=== PATIENT | male | born 1965 | race Caucasian/White ===

== ENCOUNTER 2019-03-05 12:56 | Inpatient (IN) | payer MEDICAID, SELFPAY ==
[2018-11-12 13:12] VITALS: BMI 38.9
[2019-03-05] VITALS (12 sets, daily range): BP systolic 181–200; BP diastolic 80–106; PULSE 72–94; RESP 16–31; TEMP 36.4–37.2; O2SAT 94–98; BMI 37.3; BMI 37.1; BMI 37.2
--- NOTE | 2019-03-05 13:07 | RAD_ITS ---
STUDY: X-RAY CHEST REASON FOR EXAM: Male, 53 years old. Right-sided facial numbness and right-sided. TECHNIQUE: Single AP portable view of the chest. COMPARISON: None. FINDINGS: EKG electrodes are seen. The lungs are clear and expanded. There is no demonstrated pleural abnormality. There is borderline cardiomegaly. Normal mediastinum and asuncion. Normal visualized pulmonary arteries. Normal visualized aortic arch and descending thoracic aorta. There are degenerative changes of the visualized thoracic spine. Normal visualized ribs, clavicles, and shoulders. There is no demonstrated abnormality of the visualized soft tissue structures of the upper abdomen. RAD/Chest 1 View IMPRESSION: Borderline cardiomegaly. Electronically Signed: Kemal Corey, at 13:42 EDT , Service support ,
--- NOTE | 2019-03-05 13:07 | CT_ITS ---
STUDY: CT BRAIN WITHOUT CONTRAST REASON FOR EXAM: Male, 53 years old. Right-sided weakness and facial numbness. RADIATION DOSAGE (If Supplied By Facility): CTDIvol = ( 44.99 ) mGy, DLP = ( 812.98 ) mGycm TECHNIQUE: Transaxial CT imaging of the brain was performed without administration of intravenous contrast material. Individualized dose optimization techniques were used for this CT. COMPARISON: No relevant priors. FINDINGS: Normal soft tissue structures. Normal calvarium. Normal size ventricles and extra-axial spaces for the patient's age. Normal white matter tracts of the cerebral hemispheres. Normal basal ganglia and thalami. Normal brainstem. Normal cerebellum. There is no intracranial hemorrhage. There are no findings of an acute ischemic infarction. Normal visualized paranasal sinuses. CT/Brain/Head without Contrast IMPRESSION: Normal unenhanced CT scan of the brain. N.B. : The above information has been verbally conveyed by Kemal Corey to Dima Hector on 03/05/2019 13:31:44 (ET). Electronically Signed: Kemal Corey, at 13:32 EDT , Service support ,
--- NOTE | 2019-03-05 13:07 | EKG12_ITS ---
Test Reason : NUMBNESS Blood Pressure : / mmHG Vent. Rate : 088 BPM Atrial Rate : 088 BPM P-R Int : 140 ms QRS Dur : 098 ms QT Int : 380 ms P-R-T Axes : 054 046 024 degrees QTc Int : 459 ms Normal sinus rhythm Normal ECG Confirmed by MICKY MARCOS, FRANCESCO ([id number]), newspaper photo editor SHERI JIMÉNEZ ([id number]) on 03/12/2019 11:05:42 AM Referred By: HARJEET/KYLIE Confirmed By:NICOLAS WEEKS MD
[2019-03-05 13:16] LABS: Bedside Glucose 104 mg/dL (70-110)
[2019-03-05 13:16] LABS: Absolute Lymphocyte Count 1.29 X10^3/uL (0.83-4.51); Absolute Neutrophil Count 5.4 X10^3/uL (2.0-7.7); Basophil# 0.02 X10^3/uL; Basophil% 0.3 % (0-1); Eosinophil# 0.04 X10^3/uL; Eosinophils% 0.5 % (0-5); Hematocrit 44.5 % (40-54); Hemoglobin 15.6 g/dL (13.0-16.5); Lymphocyte # 1.29 X10^3/ul (4.0); Lymphocyte % 17.6 % (19-41); Mean Corp Hgb Conc 35.1 g/dL (32-36); Mean Corpuscular Hgb 31.2 pg (27.0-32.0); Mean Platelet Vol. 9.7 fl (6.2-12.0); Monocyte# 0.56 X10^3/uL; Monocyte% 7.6 % (0-10); NRBC Flagged by Analyzer 0 % (0-5); Neutrophil % 73.7 % (47-70); Platelet Count 195 K/mm3 (150-450); RBC Distribution Width SD 42.1 fl (35.1-43.9); White Blood Count 7.3 K/mm3 (4.4-11.0)
[2019-03-05 13:34] LABS: Anion Gap 8 (5-15); BUN 20 mg/dL (7-18); BUN/Creat Ratio 22.1 RATIO (10-20); Calcium,Total 9.8 mg/dL (8.5-10.1); Chloride 106 mmol/L (98-107); EST Glomerular Filtration Rate 93 mL/min (>60); Est Glom Filt Rate - Afr Amer 112 mL/min (>60); Estimated Creatinine Clearance 84.67 ml/min; Glucose 113 mg/dL (74-106); Potassium 3.9 mmol/L (3.5-5.1); Sodium Level 139 mmol/L (136-145)
[2019-03-05 13:51] LABS: International Normalized Ratio 1.1; Prothrombin Time (Protime)PT. 13.5 SECONDS (11.7-14.9)
[2019-03-05 13:52] LABS: Partial Thromboplast Time 29.6 Seconds (24.1-36.2)
--- NOTE | 2019-03-05 14:27 | ED.RN ---
DR VANN NOTIFIED HYPERTENSION CONTINUES AFTER LABATOLOL. NEW ORDER VERBALIZED- 10MG LABATOLOL IV X1.
--- NOTE | 2019-03-05 15:00 | ED.DCSUM_ITS ---
- ER Visit Summary Date of Service: 03/05/19 Chief Complaint: Stroke History of Present Illness: The patient is a 53 M with a possible stroke. He went to bed normal at midnight last night. He woke up at 730 with decreased sensation on his right side. He believes he is walking abnormally, dragging his right foot. He never had this before. He was normal yesterday. No other symptoms or complaints. He has a history of diabetes and hypertension, but stopped taking medications secondary to a loss of his insurance. He does not smoke. He does not take blood thinners. Physical Examination: Afebrile and vital signs unremarkable except blood pressure 190/85. Patient is alert and oriented. Head and neck atraumatic. Heart regular. Lungs clear. NIH stroke scale is normal except for decreased sensation on the right side. His score was a 1. Test Results: EKG showed sinus rhythm at a rate of 88. CBC, BMP, coags, troponin unremarkable. Chest x-ray showed cardiomegaly. CT brain was normal. Emergency Department Course and Treatment: We did activate a stroke team based on his symptoms. Based on his low NIH and his wake-up component, he was not a candidate for TPA therapy. There was no concern for LVO based on his NIH score. He was treated with labetalol for his high blood pressure. I spoke with radiology and neuro. Patient will be admitted for further care. Treatment Plan: As above Disposition: Admission Impression: 1. Right-sided numbness 2. Hypertension This note was generated with [employer] dictation software. It may contain incorrect words, spelling, and punctuation that were not noted in review of the chart prior to signing ED Disposition - Plan for ED Patient: Referrals: Micah Manzanares MD [Primary Care Provider] -
--- NOTE | 2019-03-05 15:38 | PCM.HP.STD ---
Problem List (1) CVA (cerebral vascular accident) Status: Acute Qualifiers: CVA mechanism: occlusion Laterality of affected vessel: unspecified (2) Hypertension Status: Chronic Qualifiers: Hypertension type: essential hypertension Qualified Code(s): I10 - Essential (primary) hypertension (3) DM type 2 (diabetes mellitus, type 2) Status: Chronic Qualifiers: Diabetes mellitus complication status: without complication (4) Obesity (BMI 35.0-39.9 without comorbidity) Status: Chronic History of Present Illness Date of Admission: 03/05/19 Chief Complaint: Left sided weakness - 1 day The patient is a 53 year old M with past medical history of hypertension,obesity, type II DM, not on medications for more than 3 years on account of running out of insurance who was last known to be normal around midnight. He woke up around 7:30 AM and noticed that he has numbness and tingling to his right side. He felt his right leg was heavy and was dragging. Right side of his face also felt numb. There were no associated symptoms of dysarthria or aphasia. He called the ambulance around 12 noon and arrived in the emergency department around 1257 HRS. His vitals show temperature of 98.2F, heart rate 85, blood pressure 190/85, respiratory rate 18, SPO2 was 98% on room air. His admitting blood work was unremarkable, blood glucose was 113. Patient underwent the telemetry stroke work-up. Initial CT scan of the brain was unremarkable. He was not a candidate for TPA. Supportive measures and evaluation for risk factors with recommended by telemedicine neurology. His chest x-ray showed borderline cardiomegaly. He received 1 dose of IV labetalol in the emergency room department. 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 Hypertension I10 Allergies Penicillins Allergy (Verified 03/05/19 12:56) Unknown Home Medications: Ambulatory Orders Medication Instructions Recorded NK 03/05/19 Surgical History: no surgical history Psychiatric History: No pertinent psych hx Lives: Alone Smoking Status: Never smoker Tobacco Use: Non-smoker Alcohol: Occasional Drugs: None - *Family History Maternal History Items: Cancer - lung Paternal History Items: Diabetes, Heart Disease Review of Systems Constitutional: Denies: Anorexia, Chills, Fever, Malaise, Weakness, Weight Change, Fatigue Eyes: Denies: Blurred vision, Cataracts, Pain, Redness HEENT: Denies: Difficulty Hearing, Difficulty Swallowing, Head Aches, Hearing Changes, Sinus Congestion, Sinus Drainage Cardiovascular: Denies: Chest Pain, Claudication, Chest Pressure, Orthopnea, Palpitations Respiratory: Denies: Cough, Hemoptysis, Shortness of breath at rest, Shortness of breath upon exertion, Sputum production Gastrointestinal: Denies: Abdominal Pain, Constipation, Hematemesis, Hematochezia, Nausea, Vomiting Genitourinary: Denies: Dysuria Musculoskeletal: Denies: Joint Pain, Joint stiffness, Joint swelling, Joint Tenderness Skin: Denies: Rash, Wounds Neurological: Denies: Numbness, Tingling, Focal weakness Psychiatric: Denies: Anxiety, Depression, Homicidal Ideations, Suicidal Ideations Hematologic/ Lymphatic: Denies: Easy Bruising, Easy Bleeding VTE Information - Inpt Only VTE Present on Admission: No VTE Pharm Prophylaxis ordered?: Yes Patient Problems: Active and Suspected Problems (Last Reviewed 01/23/19 @ 11:12 by Allyson Hicks) CVA (cerebral vascular accident) (Acute) - Physical Exam General: Alert, Oriented x3, Cooperative HEENT: Atraumatic, PERRLA, EOMI, Normocephalic Neck: Supple, No JVD, Negative Carotid Bruits Lungs: Clear to auscultation, Normal air movement Cardiovascular: Regular rate, No murmurs Abdomen: Bowel Sounds Present, Soft, Non Tender Extremities: No edema, Capillary Refill Less than 3 Seconds Skin: No rashes, No breakdown Musculoskeletal: No Tenderness to Palpation of Joints or Extremities Neurological: Cranial nerves II-XII grossly intact Psych/Mental Status: Normal Affect, Appropriate Vital Signs Temp Pulse Resp BP Pulse Ox 98.2 F 76 20 H 181/96 H 96 03/05/19 13:53 03/05/19 14:59 03/05/19 14:59 03/05/19 14:59 03/05/19 14:59 Oxygen Flow Rate (L/min) 2 Oxygen Delivery Method Nasal Cannula Weight: 104.9 kg Body Mass Index (BMI) 37.3 Finger Stick Blood Glucose 104 Intake and Output for Last 24 Hours 03/03/19 03/04/19 03/05/19 23:59 23:59 23:59 Intake Total 500 / 500 Balance 500 / 500 Laboratory Tests Past 24 Hrs 03/05/19 03/05/19 03/05/19 13:05 13:05 13:05 WBC 7.3 RBC 5.00 Hgb 15.6 Hct 44.5 MCV 89.0 MCH 31.2 MCHC 35.1 RDW Std Deviation 42.1 RDW Coeff of Babita 13.0 Plt Count 195 MPV 9.7 Immature Gran % (Auto) 0.300 Neut % (Auto) 73.7 H Lymph % (Auto) 17.6 L [place] % (Auto) 7.6 Eos % (Auto) 0.5 Baso % (Auto) 0.3 Absolute Neuts (auto) 5.4 Absolute Lymphs (auto) 1.29 Nucleated RBC % 0 PT 13.5 INR 1.1 APTT 29.6 Sodium 139 Potassium 3.9 Chloride 106 Carbon Dioxide 25.0 Anion Gap 8 BUN 20 H Creatinine 0.90 Estim Creat Clear Calc 84.67 Est GFR (MDRD) Af Amer 112 Est GFR (MDRD) Non-Af 93 BUN/Creatinine Ratio 22.1 H Glucose 113 H Calcium 9.8 Troponin I < 0.015 POC Glucose 03/05/19 13:08 POC Glucose 104 Assessment/Plan All Active Problems (Last Reviewed 01/23/19 @ 11:12 by Allyson Hicks) CVA (cerebral vascular accident) (Acute) Pharyngitis (Acute) Segmental and somatic dysfunction of lumbar region (Acute) Segmental and somatic dysfunction of cervical region (Acute) Segmental and somatic dysfunction of thoracic region (Acute) 53 year old M with past medical history of hypertension,obesity, type II DM, not on medications for more than 3 years on account of running out of insurance who was last known to be normal around midnight. He woke up around 7:30 AM and noticed that he has numbness and tingling to his right side. 1. Acute CVA, in a patient with multiple cardiovascular risk factors Admitting NIHSS score was 2, not a TPA candidate; last known normal was midnight, presented after 12 hours Plan: Admit to PCU, monitor on telemetry, MRI of the brain, MRA of the head and neck, (patient has a dental bridge, will need to find out if that is MRI compatible) 2D echo, neurology consult, Lipid profile in am, HbA1c 2. Hypertension, uncontrolled, will treat for SBP>220/110 3. Type 2 DM, blood glucose was 113 on admission, been off his medications for more than 3 years We will check HbA1c, continue with blood glucose checks with insulin sliding scale 4. Obesity, BMI 37.3, diet and exercise is recommended 5 DVT PPX- Lovenox SC Code Visit Inpatient E&M: 90055 Init Hosp L2
--- NOTE | 2019-03-05 15:58 | ECHOD_ITS ---
Reason For Study: TIA\/CVA Procedure This was a 2D Doppler, Color Flow transthoracic echocardiogram. Exam performed portable in patient room. Left Ventricle Normal size and thickness. The estimated ejection fraction is 60 %. No evidence for diastolic dysfunction. No regional wall motion abnormalities noted. Right Ventricle Normal RV size. Normal systolic function. Atria Normal left atrium. Normal right atrium. No doppler evidence for ASD. Mitral Valve There is no mitral valve stenosis. No mitral valve insufficiency. Tricuspid Valve There is no tricuspid stenosis. Trivial tricuspid valve insufficiency. Pulmonary artery systolic pressure is 30 mmHg. Aortic Valve Trisinus/trileaflet aortic valve. There is no aortic stenosis. No aortic valve insufficiency. Pulmonic Valve There is no pulmonic valvular stenosis. No pulmonic valve insufficiency. Great Vessels Normal aortic root. Pericardium/Pleural No pericardial effusion. Medication Performed a rapid injection of agitated mix of 9 cc saline and 1cc air to assess for atrial septal defect. MMode/2D Measurements & Calculations LVIDd: 5.2 cm IVSd: 1.2 cm Ao root diam: 2.9 cm LVIDs: 3.3 cm LVPWd: 1.1 cm RVDd: 3.3 cm FS: 36.6 % LAV(MOD-bp): 83.5 ml LA A4 area: 23.4 cm2 LA dimension(2D): 4.6 cm LAV(MOD-bp) Indexed: 39.3 ml/m2 LAV(MOD-sp2): 79.0 ml LAV(MOD-sp4): 83.5 ml RA A4 area: 16.9 cm2 Time Measurements MV dec time: 0.18 sec Doppler Measurements & Calculations MV E max ephraim: 81.5 cm/sec Lat Peak E' Ephraim: 11.8 cm/sec Med Peak E' Ephraim: 7.5 cm/sec MV A max ephraim: 105.3 cm/sec E/E' lat: 6.9 E/E' med: 10.9 MV E/A: 0.77 Ao V2 max: 133.8 cm/sec LV V1 max: 110.9 cm/sec PA V2 max: 114.9 cm/sec Ao max P.2 mmHg LV V1 max P.9 mmHg TR max ephraim: 260.7 cm/sec TR max P.2 mmHg Interpretation Summary The estimated ejection fraction is 60 %. No evidence for diastolic dysfunction. Pulmonary artery systolic pressure is 30 mmHg. Ordering Physician: Indira Lott Referring Physician: Micah Manzanares Performed By: Rhiannon Vega RDCS, RVT
--- NOTE | 2019-03-05 15:58 | MRI_ITS ---
HISTORY: CVA rt sided weakness started this am TECHNIQUE: Carotid MR angiogram was performed. 3D reconstructions were reviewed. NASCET criteria using the distal internal carotid arteries for comparison were used for evaluation of stenoses. IV Contrast dosage and agent: 20 ml Dotarem COMPARISON: None FINDINGS: Number of images including paperwork: 320 AORTIC ARCH AND BRANCHES: No significant stenosis of the visualized portions. 2 vessel aortic arch branching pattern. RIGHT CCA: No occlusion, significant stenosis or dissection. RIGHT ICA: No occlusion, significant stenosis or dissection. LEFT CCA: No occlusion, significant stenosis or dissection. LEFT ICA: No occlusion, significant stenosis or dissection. RIGHT VERTEBRAL ARTERY: No occlusion, significant stenosis or dissection. LEFT VERTEBRAL ARTERY: No occlusion, significant stenosis or dissection. INCIDENTAL FINDINGS: None. MRI/MRA Neck WITH and W/O Contrast IMPRESSION: Unremarkable MRA neck. at 0715 Reported and signed by: Hoa Crews MD Electronically Signed: Hoa Crews MD at 7:14 EDT Tel , Service support ,
--- NOTE | 2019-03-05 15:58 | MRI_ITS ---
ACR Level 3 findings have been noted. An addendum which confirms receipt of the report will follow. STUDY: MRI BRAIN WITHOUT CONTRAST REASON FOR EXAM: Male, 53 years old. Right-sided weakness. TECHNIQUE: Standardized multiplanar fat and water weighted pulse sequences were obtained. COMPARISON: CT brain without contrast 03/05/2019. FINDINGS: Acute infarct posterior aspect left external capsule, 3 x 1 cm AP by transverse. No other infarct. Major flow voids preserved. Besides the infarct, the brain has normal signal. No hemorrhage or mass or hydrocephalus. Osseous structures, extracranial soft tissues unremarkable. Paranasal sinuses and mastoid air cells patent. MRI/Brain without Contrast IMPRESSION: Acute nonhemorrhagic infarct posterior aspect left external capsule, 3 cm in greatest dimension. Electronically Signed: Darell Amado, at 3:06 EDT Tel , Service support ,
--- NOTE | 2019-03-05 15:58 | MRI_ITS ---
STUDY: MRA OF THE HEAD WITHOUT CONTRAST REASON FOR EXAM: Male, 53 years old. Right-sided weakness. TECHNIQUE: 3-D [id number] (TOF) imaging was performed with MIPs. The study was performed unenhanced. COMPARISON: None. FINDINGS: Intracranial carotids:Normal course and caliber. MCAs:Normal branching pattern. No significant stenosis. ACAs:Normal branching pattern. No significant stenosis. Basilar:Normal caliber. No aneurysm. trimming cutter machine:No significant narrowing. Fed by dominant P1 segments bilaterally. Patent right posterior communicating artery identified. Patent bilateral posterior and anterior inferior and superior cerebellar arteries are identified. No evidence of AVM or aneurysm. MRI/MRA Head ONLY without Contrast IMPRESSION: No significant arterial narrowing. No acute findings. Electronically Signed: Darell Amado, at 2:52 EDT Tel , Service support ,
[2019-03-05 16:53] LABS: Hemoglobin A1c 4.8 % (4.2-6.3)
[2019-03-05] MEDS: Atorvastatin Calcium 80 MG Tablet PO (22:03)
[2019-03-05 22:16] LABS: Bedside Glucose 99 mg/dL (70-110)
[2019-03-06] VITALS (9 sets, daily range): BP systolic 180–189; BP diastolic 88–99; PULSE 71–85; RESP 16–17; TEMP 36.4–37; O2SAT 92–98; BMI 37.1
[2019-03-06] MEDS: 0.9% Normal Saline 1,000 ML 100 ML IV (05:01)
[2019-03-06 07:05] LABS: ALB/GLOB Ratio 1.1 RATIO (0.9-2.4); AST(SGOT) 25 U/L (15-37); Alanine Aminotransfer ALT/SGPT 24 U/L (16-61); Alkaline Phosphatase 97 U/L (45-117); Anion Gap 9 (5-15); BUN 14 mg/dL (7-18); BUN/Creat Ratio 17.1 RATIO (10-20); Calcium,Total 9.2 mg/dL (8.5-10.1); Chloride 108 mmol/L (98-107); Cholesterol 149 mg/dL (200); Creatinine, Serum 0.82 mg/dL (0.70-1.30); EST Glomerular Filtration Rate 104 mL/min (>60); Est Glom Filt Rate - Afr Amer 126 mL/min (>60); Estimated Creatinine Clearance 92.93 ml/min; Globulin 3.7 g/dL (2.2-4.2); Glucose 95 mg/dL (74-106); High Density Lipoprotein 44 mg/dL; Potassium 3.2 mmol/L (3.5-5.1); Protein, Total 7.7 g/dL (6.4-8.2); Sodium Level 142 mmol/L (136-145); Triglycerides 93 mg/dL; Very Low Density Lipoprotein 19 mg/dL (5-40)
[2019-03-06] MEDS: Aspirin 81 MG TAB.CHEW PO (08:02)
[2019-03-06] MEDS: Enoxaparin 40 MG/0.4 ML Syringe SC (08:02)
--- NOTE | 2019-03-06 09:54 | CON.PCM_ITS ---
Reason for Consult Date of Consultation: 03/06/19 Reason for Consultation: cva History of Present Illness: The patient is a 53 year old M right handed presented as below, yesterday noted right sided paresthesias, now improved, able to ambulate safely.no history of snoring. denies hypersomnia. reports checks sugars at home, 80-90. hasnt check bp or taken meds as below, no tob hx. no asa previously. per admit note:The patient is a 53 year old M with past medical history of hypertension,obesity, type II DM, not on medications for more than 3 years on account of running out of insurance who was last known to be normal around midnight. He woke up around 7:30 AM and noticed that he has numbness and tingling to his right side. He felt his right leg was heavy and was dragging. Right side of his face also felt numb. There were no associated symptoms of dysarthria or aphasia. He called the ambulance around 12 noon and arrived in the emergency department around 1257 HRS. His vitals show temperature of 98.2F, heart rate 85, blood pressure 190/85, respiratory rate 18, SPO2 was 98% on room air. His admitting blood work was unremarkable, blood glucose was 113. Patient underwent the telemetry stroke work-up. Initial CT scan of the brain was unremarkable. He was not a candidate for TPA. Supportive measures and evaluation for risk factors with recommended by telemedicine neurology. His chest x-ray showed borderline cardiomegaly. He received 1 dose of IV labetalol in the emergency room department. 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 Hypertension I10 Allergies Penicillins Allergy (Verified 03/05/19 12:56) Unknown Home Medications: Ambulatory Orders Medication Instructions Recorded NK 03/05/19 Surgical History: no surgical history Psychiatric History: No pertinent psych hx Lives: Alone Smoking Status: Never smoker Tobacco Use: Non-smoker Alcohol: Occasional Drugs: None - *Family History Maternal History Items: Cancer - lung Paternal History Items: Diabetes, Heart Disease Patient Problems: Active and Suspected Problems (Last Reviewed 03/06/19 @ 09:54 by Tavares Roy MD) CVA (cerebral vascular accident) (Acute) - Physical Exam General: Alert, Oriented x3, Cooperative, No apparent distress HEENT: PERRLA, EOMI Neurological: Cranial nerves II-XII grossly intact Psych/Mental Status: Normal Affect, Alert and oriented to time, place, person, mood and affect Vital Signs Temp Pulse Resp BP Pulse Ox 36.8 C 80 17 189/98 H 92 03/06/19 07:54 03/06/19 07:54 03/06/19 07:54 03/06/19 07:54 03/06/19 07:54 Oxygen Flow Rate (L/min) 2 Oxygen Delivery Method Room Air Weight: 104.9 kg Body Mass Index (BMI) 37.1 Finger Stick Blood Glucose 104 Intake and Output for Last 24 Hours 03/04/19 03/05/19 03/06/19 23:59 23:59 23:59 Intake Total 1220 / 1220 240 / 240 Balance 1220 / 1220 240 / 240 Laboratory Tests Past 24 Hrs 03/05/19 03/05/19 03/05/19 13:05 13:05 13:05 WBC 7.3 RBC 5.00 Hgb 15.6 Hct 44.5 MCV 89.0 MCH 31.2 MCHC 35.1 RDW Std Deviation 42.1 RDW Coeff of Babita 13.0 Plt Count 195 MPV 9.7 Immature Gran % (Auto) 0.300 Neut % (Auto) 73.7 H Lymph % (Auto) 17.6 L [place] % (Auto) 7.6 Eos % (Auto) 0.5 Baso % (Auto) 0.3 Absolute Neuts (auto) 5.4 Absolute Lymphs (auto) 1.29 Nucleated RBC % 0 PT 13.5 INR 1.1 APTT 29.6 Sodium 139 Potassium 3.9 Chloride 106 Carbon Dioxide 25.0 Anion Gap 8 BUN 20 H Creatinine 0.90 Estim Creat Clear Calc 84.67 Est GFR (MDRD) Af Amer 112 Est GFR (MDRD) Non-Af 93 BUN/Creatinine Ratio 22.1 H Glucose 113 H Hemoglobin A1c Calcium 9.8 Total Bilirubin AST ALT Alkaline Phosphatase Troponin I < 0.015 Total Protein Albumin Globulin Albumin/Globulin Ratio Triglycerides Cholesterol LDL Cholesterol VLDL Cholesterol HDL Cholesterol 03/05/19 03/06/19 13:05 05:00 WBC RBC Hgb Hct MCV MCH MCHC RDW Std Deviation RDW Coeff of Babita Plt Count MPV Immature Gran % (Auto) Neut % (Auto) Lymph % (Auto) [place] % (Auto) Eos % (Auto) Baso % (Auto) Absolute Neuts (auto) Absolute Lymphs (auto) Nucleated RBC % PT INR APTT Sodium 142 Potassium 3.2 L Chloride 108 H Carbon Dioxide 25.0 Anion Gap 9 BUN 14 Creatinine 0.82 Estim Creat Clear Calc 92.93 Est GFR (MDRD) Af Amer 126 Est GFR (MDRD) Non-Af 104 BUN/Creatinine Ratio 17.1 Glucose 95 Hemoglobin A1c 4.8 Calcium 9.2 Total Bilirubin 0.80 AST 25 ALT 24 Alkaline Phosphatase 97 Troponin I Total Protein 7.7 Albumin 4.0 Globulin 3.7 Albumin/Globulin Ratio 1.1 Triglycerides 93 Cholesterol 149 LDL Cholesterol 86 VLDL Cholesterol 19 HDL Cholesterol 44 POC Glucose 03/05/19 03/05/19 21:58 13:08 POC Glucose 99 104 mri reviewed, acute left IC infarct Assessment/Plan All Active Problems (Last Reviewed 03/06/19 @ 09:54 by Tavares Roy MD) CVA (cerebral vascular accident) (Acute) Pharyngitis (Acute) Segmental and somatic dysfunction of lumbar region (Acute) Segmental and somatic dysfunction of cervical region (Acute) Segmental and somatic dysfunction of thoracic region (Acute) left IC infarct, acute, small vessel echo results pending tele asa daily statin bp control if still high 03/12 blood sugar control - current hgba1c 4.8 psg if hypersomnia and snoring pt/ot dc if ambulating safely and tests ok
--- NOTE | 2019-03-06 10:56 | CASEMGMT ---
SW attempted to meet with patient to complete a PHQ-9 as he had a Stroke. However, he had a visitor and asked that SW come back later. Yanely LOPEZ MSW
--- NOTE | 2019-03-06 11:33 | DCINST_ITS ---
- Discharge Diagnoses Current Active Problems: Current Active and Chronic Problems (Last Reviewed 03/06/19 @ 09:54 by Tavares Roy MD) CVA (cerebral vascular accident) (Acute) Hypertension (Chronic) DM type 2 (diabetes mellitus, type 2) (Chronic) Obesity (BMI 35.0-39.9 without comorbidity) (Chronic) You will use the following diet at home:: Cardiac Your food should be the consistency of: Regular Your liquids should be the consistency of: Regular/Thin Discharge Activity: Return to Normal Activity Additional Instructions: Check blood pressure daily and record results. Present these to your PCP at follow up. Allergies/Adverse Reactions: Allergies Penicillins Allergy (Verified 03/05/19 12:56) Unknown Medications to take at Discharge Aspirin [Aspirin, Baby] 81 mg PO DAILY@0800 tab.chew 03/06/19 Atorvastatin Calcium [Lipitor] 80 mg PO QHS #30 tab 03/06/19 The following prescriptions were given: Atorvastatin Calcium [Lipitor] 80 mg PO QHS #30 tab Transmission Status: Pending to [facility] [facility] Primary Care Physician: Micah Manzanares MD [Primary Care Provider] - Please follow up with your Primary Care Physician in: 1 week Test Results: Test results from this visit will be discussed in further detail at your follow- up appointment, if applicable. Please Follow Up With: Micah Manzanares MD Please Follow Up With: Tavares Roy MD When: 4 weeks Proposed Discharge Date: 03/06/19
--- NOTE | 2019-03-06 12:47 | CASEMGMT ---
Assessment- SW completed assessment with patient at bedside. SW confirmed patient?s address and phone number. SW also confirmed his service advocate contact and his contact information. SW asked patient about not getting medications because of no insurance. He explained that he has been unemployed for quite some time. He went to make an appt with his PCP, Dr Manzanares at [facility] and they told him he needs to see a financial counselor first. He never heard back from them. He went to the ED to have a burn checked and one of the ladies in Patient Financial Services helped him apply for Medicaid and he has had it ever since. He said he is out of meds because he never went back to the doctor to have them re-ordered. He will have no problems getting any prescriptions filled at d/c. Living situation- Patient lives alone in a 1 story home with a few entry steps. PCP: Dr Manzanares Specialists: none Pharmacy: [facility] DME: none ADL's/IADL's: Patient is independent in all activities of daily living. He drives, manages his own meds, cooks, cleans, and shops for himself Past SNF/rehab: none Past HH: none LW: no POA: no Plan: At this time patient plans on returning home. He is concerned about deficits on his right side. SW told him therapy will come and evaluate him. They will then make recommendations. Yanely SAEED
--- NOTE | 2019-03-06 13:04 | CASEMGMT ---
SW completed a PHQ-9 with patient as he had a Stroke. He scored a 0 which indicates no Depression. Yanely LOPEZ MSW
--- NOTE | 2019-03-06 13:14 | PHA.DC.MC ---
Pharmacy Service has performed discharge medication reconciliation and counseling for this patient. 1. Atorvastatin 80mg PO QHS 2. Aspirin 81mg PO daily The patient's discharge medication list was reviewed for discrepancies and discrepancies were resolved. Home Medications Aspirin [Aspirin, Baby] 81 mg PO DAILY@0800 tab.chew 03/06/19 Atorvastatin Calcium [Lipitor] 80 mg PO QHS #30 tab 03/06/19 The patient was counseled on the following discharge medications and changes in medications for homegoing were reviewed. The Reason for Use, instructions for use, and potential side effects were reviewed for all new medications. The patient's questions regarding all of their medications were answered. The patient was able to verbally demonstrate an understanding of their discharge medications.
--- NOTE | 2019-03-06 14:29 | PCM.DC.SUM ---
<Carlos Crawley - Last Filed: 03/06/19 14:29> Discharge Date and Diagnosis - Problem List Patient Problems: Active and Suspected Problems (Last Reviewed 03/06/19 @ 09:54 by Tavares Roy MD) CVA (cerebral vascular accident) (Acute) Date of Admission: 03/05/19 Date of Discharge: 03/06/19 - Primary Discharge Diagnosis Active and Suspected Problems (Last Reviewed 03/06/19 @ 09:54 by Tavares Roy MD) Acute infarct-posterior aspect of the left external capsule Type 2 diabetes, diet-controlled Uncontrolled hypertension Obesity - Secondary Discharge Diagnosis Chronic Problems (Last Reviewed 03/06/19 @ 09:54 by Tavares Roy MD) Hypertension (Chronic) DM type 2 (diabetes mellitus, type 2) (Chronic) Obesity (BMI 35.0-39.9 without comorbidity) (Chronic) Hospital Course and Treatment Imaging Results: CT/Brain/Head without Contrast IMPRESSION: Normal unenhanced CT scan of the brain. RAD/Chest 1 View IMPRESSION: Borderline cardiomegaly. MRI/Brain without Contrast IMPRESSION: Acute nonhemorrhagic infarct posterior aspect left external capsule, 3 cm in greatest dimension. MRI/MRA Head ONLY without Contrast IMPRESSION: No significant arterial narrowing. No acute findings. MRI/MRA Neck WITH and W/O Contrast IMPRESSION: Unremarkable MRA neck. Consults: Neuro - Roy Operations: None Procedures: 2-D Echocardiogram Summary of Care Provided: Hospital course: The patient is a 53 year old M with past medical history of type 2 diabetes, diet-controlled, hypertension not on any home medications, and obesity, who presented to the emergency room with complaints of right-sided numbness and weakness including right foot drag. He woke up with the symptoms at about 730 of the day of presentation and was normal when he went to bed the night before. He was found to have markedly elevated blood pressure 190/85, CT of the brain was negative. He was admitted to the PCU and placed on telemetry with concern for acute stroke. He underwent an MRI of the brain which did demonstrate an acute infarct as above, MRA of the head and neck were negative. Echo is pending at this time. Neurology evaluated the patient and recommended continuing aspirin and statin. The patient's blood pressure remained markedly elevated. Neurology recommended not starting blood pressure control until March 12 if he is still high. He will need close follow-up with his PCP for monitoring of of his blood pressure as he may need further adjustments. He should follow-up within a week. We checked an A1c with his history of diabetes which was unremarkable at 4.8. He will need follow-up with neurology in 3 to 4 weeks. The patient was discharged home in stable condition. He had some residual numbness in his right arm and right leg at the time of discharge. This patient was seen by Carlos Crawley PA-C under the supervision of Doctor Leisa. [] Patient Problems: Active and Suspected Problems (Last Reviewed 03/06/19 @ 09:54 by Tavares Roy MD) CVA (cerebral vascular accident) (Acute) - Physical Exam General: Alert, Oriented x3, Cooperative HEENT: Atraumatic, PERRLA, EOMI, Normocephalic Neck: Supple, No JVD, Negative Carotid Bruits Lungs: Clear to auscultation, Normal air movement Cardiovascular: Regular rate, No murmurs Abdomen: Bowel Sounds Present, Soft, Non Tender Extremities: No edema, Capillary Refill Less than 3 Seconds Skin: No rashes, No breakdown Musculoskeletal: No Tenderness to Palpation of Joints or Extremities Neurological: Cranial nerves II-XII grossly intact Psych/Mental Status: Normal Affect, Appropriate, Alert and oriented to time, place, person, mood and affect Vital Signs Temp Pulse Resp BP Pulse Ox 98.6 F 83 16 185/95 H 97 03/06/19 11:50 03/06/19 11:50 03/06/19 11:50 03/06/19 11:50 03/06/19 11:50 Oxygen Flow Rate (L/min) 2 Oxygen Delivery Method Room Air Weight: 231 lb 4.238 oz Body Mass Index (BMI) 37.1 Finger Stick Blood Glucose 104 Intake and Output for Last 24 Hours 03/04/19 03/05/19 03/06/19 23:59 23:59 23:59 Intake Total 1220 / 1220 665 / 665 Balance 1220 / 1220 665 / 665 Laboratory Tests Past 24 Hrs 03/05/19 03/06/19 13:05 05:00 Sodium 142 Potassium 3.2 L Chloride 108 H Carbon Dioxide 25.0 Anion Gap 9 BUN 14 Creatinine 0.82 Estim Creat Clear Calc 92.93 Est GFR (MDRD) Af Amer 126 Est GFR (MDRD) Non-Af 104 BUN/Creatinine Ratio 17.1 Glucose 95 Hemoglobin A1c 4.8 Calcium 9.2 Total Bilirubin 0.80 AST 25 ALT 24 Alkaline Phosphatase 97 Total Protein 7.7 Albumin 4.0 Globulin 3.7 Albumin/Globulin Ratio 1.1 Triglycerides 93 Cholesterol 149 LDL Cholesterol 86 VLDL Cholesterol 19 HDL Cholesterol 44 POC Glucose 03/05/19 21:58 POC Glucose 99 Discharge Diet: Low fat/ Low Cholesterol, 1800 Calorie Control Diet, 2000 mg Sodium Diet Discharge Activity: Return to Normal Activity Home Medications: Medications to take at Discharge Amlodipine [Norvasc] 5 mg PO DAILY #30 tab 03/06/19 Aspirin [Aspirin, Baby] 81 mg PO DAILY@0800 tab.chew 03/06/19 Atorvastatin Calcium [Lipitor] 80 mg PO QHS #30 tab 03/06/19 Following Prescrptions Were Given to Patient: Atorvastatin Calcium [Lipitor] 80 mg PO QHS #30 tab Transmission Status: Received by MIKY BOYCEVELAND GEOFFREY Amlodipine [Norvasc] 5 mg PO DAILY #30 tab Transmission Status: [facility] Primary Care Physician: Micah Manzanares MD [Primary Care Provider] - Please follow up with your Primary Care Physician in: 1 week Please Follow Up With: Micah Manzanares MD Please Follow Up With: Tavares Roy MD When: 4 weeks Disposition: Home Minutes spent on discharge:: 35 Patient Condition:: Stable Medical Necessity - Tobacco Use Smoking Status: Never smoker Tobacco Use: Non-smoker Meaningful Use Info Meaningful Use Diagnoses (Choose all that apply): Ischemic CVA - CVA Therapy Assessed for PT,OT and/or ST?: Yes - Ischemic Stroke Antithrombotic order at d/c?: Yes Dx of Atrial fib/flutter?: No Statins at discharge?: Yes Primary Dx Acute Ischemic CVA?: Yes IV tPA ordered during stay?: No Reason IV t-PA not ordered: Procedure not Indicated <Pascual De La Fuente - Last Filed: 03/06/19 16:36> Discharge Date and Diagnosis - Primary Discharge Diagnosis Active and Suspected Problems (Last Reviewed 03/06/19 @ 09:54 by Tavares Roy MD) CVA (cerebral vascular accident) (Acute) - Secondary Discharge Diagnosis Chronic Problems (Last Reviewed 03/06/19 @ 09:54 by Tavares Roy MD) Hypertension (Chronic) DM type 2 (diabetes mellitus, type 2) (Chronic) Obesity (BMI 35.0-39.9 without comorbidity) (Chronic) Hospital Course and Treatment Summary of Care Provided: The patient is a 53 year old M [] - Physical Exam Vital Signs Temp Pulse Resp BP Pulse Ox 98.6 F 83 16 185/95 H 97 03/06/19 11:50 03/06/19 11:50 03/06/19 11:50 03/06/19 11:50 03/06/19 11:50 Oxygen Flow Rate (L/min) 2 Oxygen Delivery Method Room Air Weight: 231 lb 4.238 oz Body Mass Index (BMI) 37.1 Finger Stick Blood Glucose 104 Intake and Output for Last 24 Hours 03/04/19 03/05/19 03/06/19 23:59 23:59 23:59 Intake Total 1220 / 1220 665 / 665 Balance 1220 / 1220 665 / 665 Laboratory Tests Past 24 Hrs 03/05/19 03/06/19 13:05 05:00 Sodium 142 Potassium 3.2 L Chloride 108 H Carbon Dioxide 25.0 Anion Gap 9 BUN 14 Creatinine 0.82 Estim Creat Clear Calc 92.93 Est GFR (MDRD) Af Amer 126 Est GFR (MDRD) Non-Af 104 BUN/Creatinine Ratio 17.1 Glucose 95 Hemoglobin A1c 4.8 Calcium 9.2 Total Bilirubin 0.80 AST 25 ALT 24 Alkaline Phosphatase 97 Total Protein 7.7 Albumin 4.0 Globulin 3.7 Albumin/Globulin Ratio 1.1 Triglycerides 93 Cholesterol 149 LDL Cholesterol 86 VLDL Cholesterol 19 HDL Cholesterol 44 POC Glucose 03/05/19 21:58 POC Glucose 99 Code Visit Addendum: Dr. De La Fuente I personally examined the patient and reviewed the chart. I agree with the above. 53-year-old male presenting with an acute posterior stroke. He woke up yesterday morning with decreased function in his right side. He felt he can get out of bed had difficulty walking as well as numbness and tingling. He presented outside of the TPA window and was found to have an NIH of 2 on admission. MRI showed a stroke and he has had an MRI of his head and neck which were negative for any lesions. Echo was unremarkable. He was able to ambulate over the entire unit today on discharge and therefore was able to go home. He was started on aspirin and Lipitor and was seen by neurology prior to discharge. They recommend follow-up in 1 to 2 weeks in their office. Inpatient E&M: [id number] Disch Hosp
--- NOTE | 2019-03-06 16:16 | NURSING ---
Script for PT/OT faxed to [employer] Original sent with patient.
== END 2019-03-06 17:08 | disposition home or self-care (01) | DRG 45 ==
LOC: ED 13:43 → PCU 15:25
PROVIDERS: Admitting Provider Internal Medicine; Emergency Provider Emergency Medicine; Family Provider Family Medicine; PCP Family Medicine; Visit Provider Family Medicine
DX: I63.9 Cerebral infarction, unspecified (principal); R20.0 Anesthesia of skin; E11.9 Type 2 diabetes mellitus without complications; I10 Essential (primary) hypertension; E66.9 Obesity, unspecified; Z91.14 Patient's other noncompliance with medication regimen; R29.702 NIHSS score 2; Z68.37 Body mass index [BMI] 37.0-37.9, adult
CPT/HCPCS: 36415; 70450; 70544; 70549; 70551; 71045; 80048; 80053; 80061; 82962; 83036; 84484; 85025; 85610; 85730; 92523; 92610; 93005; 93306; 97161; 97166; 97802; 99285; A9575; J7030; J7040; Q9957; A4216

== ENCOUNTER 2019-03-24 10:17 | Outpatient (RCR) | payer MEDICAID, SELFPAY ==
[2019-03-06 17:00] VITALS: BMI 37.1
== END 2019-03-24 19:00 | disposition home or self-care (01) ==
LOC: OT 10:17
PROVIDERS: Family Provider Family Medicine; PCP Family Medicine; Visit Provider Physician Assistant
DX: Z86.73 Personal history of transient ischemic attack (TIA), and cerebral infarction without residual deficits (principal)

== ENCOUNTER 2019-03-24 10:30 | Outpatient (RCR) | payer MEDICAID, SELFPAY ==
[2019-03-06 17:00] VITALS: BMI 37.1
--- NOTE | 2019-03-24 12:11 | HP.OTEVAL ---
Patient's Visit Information JACKIE JONES is a 53 year old M, referred to Occupational Therapy by PO Gómez, with a diagnosis of Acute Infarct. Date of Evaluation: 03/24/19 Occupational Therapist: Ruth Chen, MELANY/Joey - Subjective Subjective: Jackie Morgan arrived for functional capacity evaluation as referred from Carlos Crawley PA-C. He noted that he has not worked a regular job for 'about 17 years' and does not have plans to file for disability. 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 He noted that he had CVA on 03/05/19. Eddie has significant past medical history includes hypertension, cerebral vascular accident, diabetes mellitus type 2, and obesity as listed in chart and verbalized. He noted he is genevieve to baseline and is unsure of why he was referred for FCE. OT called to reach Carlos but was unable to reach. Completed OT regular assessment and if further FCE needed can completed at later date. Eddie noted he was in agreement as would like to avoid FCE if not needed. - ADLs Comments: Eddie lives in one story home with three steps to enter with no handrail. He does have basement which he accesses regularly. There are ten steps to complete getting to and from basement. No handrail to basement. He noted is able to carry laundry basket down and upstairs without issue. He is independent with all self-care items including buttons. He noted he does not have any pets to care for but is complete yardwork, cooking, and cleaning without issues. He completed his own lawncare. - Objective Concerns: Eddie was referred and scheduled for FCE. After further conversation with him he noted he is not filing for disability or planning on returning to work outside the home. Completed regular OT evaluation only at this time. OT called to doctors office for clarity but did not return while he was in clinic. If FCE is needed further scheduling of assessment to be completed. - ROM Shoulder: WFL Elbow: WFL Forearm: WFL Wrist: WFL MP: WFL PIP: WFL DIP: WFL - Strength Shoulder: R 5/5, L 5/5 Elbow: R 5/5, L 5/5 Forearm: R 5/5, L 5/5 Wrist: R 5/5, L 5/5 Director Of Slot Operations: R 72,70, 81; L 66, 66, 69 Lateral Pinch: R 20, 18, 18; L 15, 15, 14 Tripod Pinch: R 14, 17, 15; L 14, 15, 12 Tip-to-Tip Pinch: R 8, L 10 Strength Comments: Completed three measurements just incase a FCE is needed. He exhibits good rotator cuff inetgrity as well as strength for R affected side. He is at baseline. - Sensation Thumb: R 3.22, L 2.83 Index: R 2.44, L 2.44 Middle: R 2.44, L 2.83 Rin 2.83, L 2.44 Little: R 2.44, L 2.44 Kinesthesia: Normal - Right, Normal - Left Proprioception: Normal - Right, Normal - Left - Movement Ataxia: WFL Muscle Tone: WFL Tremors: none observed - Cognitive Skills Cognitive Comments: MoCA version 8.2: 28/30- score is normal - P[employer]ue Peg Board Placing: R 13, L 12 Bilateral: 10 Assembly: 7 Comments: Completed in standing with table height set 2 inches about waist. - DASH-Disabilities of Arm, Shoulder& Hand DASH Sum: 31 - Rehabilitation General Assessment: Eddie is s/p CVA ob 03/05/19. He noted he is (I) with all ADL/IADLs and B UE strength and ROM is WFL. He is completing yardwork, has trialed going to gym 1x and noted it 'went well', and drove to today's session. He has returned to baseline and will not be picked up at this time. If questions/concerns he is to call. Rehabilitation Potential: Excellent - Anticipated Interventions Anticipated Interventions: Home Program Other Interventions: Provdied HEP for UE strength as well assensory reintegration techniques. - Visit Plan General Plan: Eddie to call if needed or if questions/concerns arise. Otherwise he will not be picked up by OT at this time and HEp provided. TEXT: Thank you for the opportunity to evaluate your patient. For Medicare and Medicare HMO plans, please review the plan of care and approve it. It will need to be FAXED BACK to us at [phone] for Medicare purposes. Please let me know if there are questions or concerns regarding this plan of care. Physician Signature: Date:
== END 2019-03-24 19:00 | disposition home or self-care (01) ==
LOC: OT 10:30
PROVIDERS: Family Provider Family Medicine; PCP Family Medicine; Referring Provider Physician Assistant; Visit Provider Physician Assistant
DX: Z86.73 Personal history of transient ischemic attack (TIA), and cerebral infarction without residual deficits (principal)
CPT/HCPCS: 97166; 97750

== ENCOUNTER 2019-03-31 14:00 | Outpatient (RCR) | payer MEDICAID, SELFPAY ==
[2019-03-06 17:00] VITALS: BMI 37.1
--- NOTE | 2019-03-17 14:39 | HP.PTEVAL ---
Patient's Visit Information JACKIE JONES is a 53 year old M referred to Physical Therapy by PO Gómez with a diagnosis of Acute infarct. Date of Evaluation: 03/17/19 Physical Therapist: Manolo Jonas, SANJEEVT, OCS, CSCS - Visit Plan Duration: f/u two weeks Plan: Pt doing well and reguar therapy not necessary. Pt is to get clearance from primary doctor tomorrow and then return to [employer] and call if problems. Will f/u in two weeks to ensure back to full workout adn balance still good and call prior if needed. - Subjective Findings: Stroke 2 weeks ago. Woke up and R leg was numb adn tingly. R hand felt heavy. R side of face was numb. Could still walk but was not overly steady and R LE was in a bucket feeling. Went to ER and did lots of test including CATSCAN adn MRI adn confirmed stroke. In hospital one day. Gave Lipitor adn baby aspirin. Will see primary care physician tomorrow for first time. Currently still has some numbness R distal forearm and also in leg if he rubs it he can feel numby laterally. Feels pretty normal without palpation. Face feeels mostly OK. Walking is better but slightly unsteady first step going down stairs, doesn't last long. Gone up and down steps without rail. Sleep is good. 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 Hobbies including computers adn sports. Was working out 3x/week prior to this elliptical and TM and free weights. Has not returned to this. Wants to clear with family doctor first. Handwriting adn buttons back to normal. Basic ADLS dressing normal. - Objective SLS L adn R 15 seconds each. Normal gait, normal steps reciprocally without rail. Trasnfers normal. LE aROM WFL, UE AROM WFL without pain. strength LE 4+/5 without asymmetires adn UE 4/5 withotu asymmetries. coordination to reciprocal toe adn heel tap and heel to maza were normal and symmetrical. Fingers to thumb test normal and symmetircal. reflexes bi and tri adn achilles adn patella 1/3 B. Sensation WNL to gross light touch in LE adn UE, slightly hypersensitive lateral upper R LE. - Balance Scores Functional Gait Assessment Score: 30 % Disability: 0 CATSIB Score (Max score 120 seconds): 120 - Goals Goal 1:: Back to full [employer] workout without hesitation or concerns safely Goal Time Frame: 2-4 Weeks - Rehabilitation Potential Physical Therapy Diagnosis: Stroke Rehabilitation Potential: Good - Anticipated Interventions Patient/Client Instruction: Educate patient on: Condition For the Purpose of:: To increase tolerance to activity/condition/position Therapeutic Exercise to Include: Strength training For the Purpose of:: To increase tolerance to activity/condition/position Thank you for the opportunity to evaluate your patient. For Medicare and Medicare HMO plans, please review the plan of care and approve it. It will need to be FAXED BACK to us at [phone] for Medicare purposes. For Medicare only, by signing this I certify the plan of care. Please let me know if there are questions or concerns regarding this plan of care. Physician Signature: Date:
--- NOTE | 2019-03-31 14:15 | HP.PTDCSUM ---
HP - PT D/C Summary It has been my pleasure to treat JACKIE JONES under orders from Micah Manzanares MD, for the diagnosis of Acute infarct for a total of 2 visit(s). Discharge Date: 03/31/19 Please see the following information for a summary of their discharge status. - Subjective Subjective: Been back [employer] workout lightly without problems. Feeling back to normal. 100%. Not avoiding any activities. saw PA and is low in potassium. Will make dietary adjustments. Work is normal. No pain. Balance feels normal. Raked leaves leaves without a problem. - Overall Improvement % Improvement: 100 - Objective Objective/Function: FGA and normal adn symmetrical strength. Walking normal and steps reciprocal without rail. Transfer out of chair I. - Goals Goal 1:: Back to full [employer] workout without hesitation or concerns safely Goal Progress: Goal Met - Plan Plan: D/C - D/C Information Discharge Comments: No concerns adn back to normal. If there are questions or concerns regarding this patient's physical therapy, please feel free to call me at [phone]. Thank you for the referral of this patient. Sincerely, Manolo Jonas, DPT, OCS, CSCS
== END 2019-03-31 19:00 | disposition home or self-care (01) ==
LOC: PT 14:00
PROVIDERS: Family Provider Family Medicine; PCP Family Medicine; Visit Provider Family Medicine
DX: Z86.73 Personal history of transient ischemic attack (TIA), and cerebral infarction without residual deficits (principal)
CPT/HCPCS: 97162; 97530

== ENCOUNTER 2020-08-05 14:52 | Outpatient (RCR) | payer MEDICAID, SELFPAY ==
[2019-03-06 17:00] VITALS: BMI 37.1
[2020-08-05] MEDS: COVID-19 VACC, MRNA(PFIZER)/PF 30 MCG/0.3 ML SYRINGE IM (13:41)
[2020-08-26] MEDS: COVID-19 VACC, MRNA(PFIZER)/PF 30 MCG/0.3 ML SYRINGE IM (13:18)
== END 2020-08-05 23:59 ==
LOC: IMMUN 14:52
PROVIDERS: PCP Family Medicine; Visit Provider Family Medicine
DX: Z23 Encounter for immunization (principal)
CPT/HCPCS: 0001A; 0002A; 91300

== ENCOUNTER → 2024-02-18 | Outpatient (CLI) | payer BC, SELFPAY ==
[2024-02-18 12:39] LABS: Absolute Lymphocyte Count 1.24 X10^3/uL (0.83-4.51); Absolute Neutrophil Count 5.8 X10^3/uL (2.0-7.7); Basophil# 0.05 X10^3/uL; Basophil% 0.6 % (0-1); Eosinophil# 0.11 X10^3/uL; Eosinophils% 1.4 % (0-5); Hematocrit 45.1 % (40-54); Hemoglobin 15.3 g/dL (13.0-16.5); Lymphocyte # 1.24 X10^3/ul (0.83-4.51); Lymphocyte % 15.7 % (19-41); Mean Corp Hgb Conc 33.9 g/dL (32-36); Mean Corpuscular Hgb 29.8 pg (27.0-32.0); Mean Corpuscular Volume 87.7 fL (80-94); Mean Platelet Vol. 10.7 fl (6.2-12.0); Monocyte# 0.72 X10^3/uL; Monocyte% 9.1 % (0-10); NRBC Flagged by Analyzer 0 % (0-5); Neutrophil # 5.77 X10^3/uL (2.7-7.7); Neutrophil % 72.9 % (47-70); Platelet Count 233 K/mm3 (150-450); RBC Distribution Width CV 12.2 % (11.6-14.6); RBC Distribution Width SD 39.1 fl (35.1-43.9); Red Blood Count 5.14 M/mm3 (4.6-6.2); White Blood Count 7.9 K/mm3 (4.4-11.0)
[2024-02-18 13:30] LABS: ALB/GLOB Ratio 1.1 RATIO (0.9-2.4); AST(SGOT) 16 U/L (15-37); Alanine Aminotransfer ALT/SGPT 17 U/L (16-61); Albumin, Serum 4.2 g/dL (3.2-5.0); Alkaline Phosphatase 97 U/L (45-117); Anion Gap 8 (5-15); BUN 19 mg/dL (7-18); BUN/Creat Ratio 19.9 RATIO (10-20); Calcium,Total 10.1 mg/dL (8.5-10.1); Chloride 103 mmol/L (98-107); Cholesterol 188 mg/dL (200); Creatinine, Serum 0.95 mg/dL (0.70-1.30); EST Glomerular Filtration Rate 86 mL/min (>60); Est Glom Filt Rate - Afr Amer 104 mL/min (>60); Globulin 3.9 g/dL (2.2-4.2); Glucose 98 mg/dL (74-106); High Density Lipoprotein 38 mg/dL; PSA,Total- Diagnostic 0.77 ng/mL (0.0-4.0); Potassium 3.2 mmol/L (3.5-5.1); Protein, Total 8.1 g/dL (6.4-8.2); Sodium Level 138 mmol/L (136-145); Triglycerides 188 mg/dL; Very Low Density Lipoprotein 38 mg/dL (5-40)
[2024-02-18 14:09] LABS: Hemoglobin A1c 5.1 % (3.8-5.6)
== END | disposition home or self-care (01) ==
LOC: MFPLAB 09:40
PROVIDERS: PCP Family Medicine; Visit Provider Family Medicine
DX: E11.9 Type 2 diabetes mellitus without complications (principal); I10 Essential (primary) hypertension; Z12.5 Encounter for screening for malignant neoplasm of prostate; R53.83 Other fatigue
CPT/HCPCS: 36415; 80053; 80061; 83036; 84153; 84443; 85025